=== PATIENT | male | born 1935 ===

== ENCOUNTER 2019-11-02 20:34 | Outpatient (REF) | payer MEDICARE, SELFPAY ==
[2019-11-02 20:59] LABS: Abs Immature Grans 0.02 10^3/uL (0.0-0.06); Absolute Basophil Count 0.05 10^3/uL (0.0-0.2); Absolute Lymphocyte Count 1.22 10^3/uL (1.2-3.4); Absolute Monocyte Count 0.81 10^3/uL (0.1-0.8); Absolute Neutrophil Count 4.16 10^3/uL (1.2-6.7); Basophils % 0.8; Eosinophils % 1.6; HCT 36.7 % (40.0-50.0); HGB 12.2 g/dL (13.5-17.5); Immature Grans % 0.3; Lymphocytes % 19.2; MCH 31.4 pg (27.0-33.0); MCHC 33.2 % (32.0-36.0); MCV 94.3 fL (80-95); MPV 12.1 fL (8.0-11.0); Monocytes % 12.7; Neutrophils % 65.4; Nucleated RBC 0 %; Platelet Count 111 10^3/uL (130-400); RBC 3.89 10^6/uL (4.36-5.78); RDW 12.5 % (11.8-14.1); RDW-SD 43.4 fL; WBC 6.36 10^3/uL (4.4-10.8)
[2019-11-02 21:01] LABS: INR 3.8 (0.9-1.1); Prothrombin Time 36.9 sec (9.3-11.0)
[2019-11-02 21:47] LABS: ALT 54 U/L (16-63); AST 46 U/L (15-37); Albumin 3.7 g/dL (3.4-5.0); Alkaline Phosphatase 305 U/L (46-116); Anion Gap 5.1 mmol/L (3-11); BUN 26 mg/dL (7-18); Bilirubin, Total 1.7 mg/dL (0.2-1.0); CO2 31.9 mmol/L (21.0-32.0); CREATININE 1.22 mg/dL (0.70-1.30); Calcium 9.5 mg/dL (8.5-10.1); Chloride 95 mmol/L (98-107); Estimated GFR 56.87 (mL/min/1.73m2); Glucose 122 mg/dL (74-106); Potassium 4.5 mmol/L (3.5-5.1); Sodium 132 mmol/L (136-145); Total Protein 6.9 g/dL (6.4-8.2)
[2019-11-02 22:11] LABS: Vitamin B12 878 pg/mL (193-986)
== END 2019-11-02 20:54 ==
LOC: NCHCN 20:34
PROVIDERS: PCP Nurse Practitioner Family; Visit Provider Nurse Practitioner Family
DX: I48.91 Unspecified atrial fibrillation (principal); I25.10 Atherosclerotic heart disease of native coronary artery without angina pectoris; R60.0 Localized edema
CPT/HCPCS: 80053; 82607; 84443; 85025; 85610

== ENCOUNTER 2019-11-15 14:48 | Outpatient (REF) | payer MEDICARE, SELFPAY ==
[2019-11-15 20:44] LABS: HCT 43.3 % (40.0-50.0); HGB 14.8 g/dL (13.5-17.5); MCH 31.5 pg (27.0-33.0); MCHC 34.2 % (32.0-36.0); MCV 92.1 fL (80-95); MPV 10.2 fL (8.0-11.0); Platelet Count 280 10^3/uL (130-400); RDW 12.3 % (11.8-14.1); RDW-SD 41.7 fL; WBC 9.01 10^3/uL (4.4-10.8)
[2019-11-15 21:39] LABS: ALT 42 U/L (16-63); AST 44 U/L (15-37); Albumin 4.6 g/dL (3.4-5.0); Alkaline Phosphatase 228 U/L (46-116); Anion Gap 9.6 mmol/L (3-11); BUN 29 mg/dL (7-18); Bilirubin, Total 1.6 mg/dL (0.2-1.0); CO2 28.4 mmol/L (21.0-32.0); CREATININE 1.21 mg/dL (0.70-1.30); Calcium 10.1 mg/dL (8.5-10.1); Chloride 93 mmol/L (98-107); Estimated GFR 57.41 (mL/min/1.73m2); Glucose 137 mg/dL (74-106); Potassium 4.6 mmol/L (3.5-5.1); Sodium 131 mmol/L (136-145); Total Protein 8.4 g/dL (6.4-8.2)
[2019-11-15 21:45] LABS: Vitamin D 25 Total 45.6 ng/ml (30-100)
[2019-11-16 09:02] LABS: Hemoglobin A1C 5.9 % (3.8-5.6)
== END 2019-11-15 15:08 ==
LOC: NCHCN 14:48
PROVIDERS: PCP Nurse Practitioner Family; Visit Provider Nurse Practitioner Family
DX: D64.9 Anemia, unspecified (principal); E55.9 Vitamin D deficiency, unspecified; I48.91 Unspecified atrial fibrillation; I35.0 Nonrheumatic aortic (valve) stenosis; R73.9 Hyperglycemia, unspecified
CPT/HCPCS: 80053; 82306; 85027; 83036

== ENCOUNTER 2019-11-23 16:39 | Outpatient (REF) | payer MEDICARE, SELFPAY ==
[2019-11-23 20:52] LABS: Abs Immature Grans 0.04 10^3/uL (0.0-0.06); Absolute Basophil Count 0.06 10^3/uL (0.0-0.2); Absolute Eosinophil Count 0.08 10^3/uL (0.0-0.7); Absolute Lymphocyte Count 1.89 10^3/uL (1.2-3.4); Basophils % 0.5; Eosinophils % 0.7; HGB 15.5 g/dL (13.5-17.5); Immature Grans % 0.3; Lymphocytes % 16.3; MCH 31.5 pg (27.0-33.0); MCHC 34.4 % (32.0-36.0); MCV 91.5 fL (80-95); MPV 10.2 fL (8.0-11.0); Monocytes % 10.4; Neutrophils % 71.8; Nucleated RBC 0 %; Platelet Count 255 10^3/uL (130-400); RBC 4.92 10^6/uL (4.36-5.78); RDW 12.7 % (11.8-14.1); RDW-SD 42.3 fL; WBC 11.58 10^3/uL (4.4-10.8)
[2019-11-23 21:03] LABS: Uric Acid 10.4 mg/dL (3.5-7.2)
[2019-11-23 21:07] LABS: Absolute Neutrophil Count 8.31 10^3/uL (1.2-6.7)
== END 2019-11-23 16:59 ==
LOC: NCHCN 16:39
PROVIDERS: PCP Nurse Practitioner Family; Visit Provider Nurse Practitioner Family
DX: I48.91 Unspecified atrial fibrillation (principal); Z79.01 Long term (current) use of anticoagulants; M25.562 Pain in left knee
CPT/HCPCS: 84550; 85025; 85610

== ENCOUNTER 2019-11-26 09:30 | Outpatient (REF) | payer MEDICARE, SELFPAY ==
[2019-11-26 21:44] LABS: Prothrombin Time 41.9 sec (9.3-11.0)
[2019-11-26 22:10] LABS: INR 4.3 (0.9-1.1)
== END 2019-11-26 09:50 ==
LOC: NCHCN 09:30
PROVIDERS: PCP Nurse Practitioner Family; Visit Provider Nurse Practitioner Family
DX: I48.91 Unspecified atrial fibrillation (principal); Z79.01 Long term (current) use of anticoagulants
CPT/HCPCS: 85610

== ENCOUNTER 2020-02-12 15:13 | Outpatient (REF) | payer MEDICARE, SELFPAY ==
[2020-02-12 21:17] LABS: HCT 44.1 % (40.0-50.0); HGB 14.7 g/dL (13.5-17.5); MCH 31.1 pg (27.0-33.0); MCHC 33.3 % (32.0-36.0); MCV 93.2 fL (80-95); MPV 10.4 fL (8.0-11.0); Platelet Count 248 10^3/uL (130-400); RBC 4.73 10^6/uL (4.36-5.78); RDW 13.7 % (11.8-14.1); RDW-SD 47.2 fL
[2020-02-12 21:51] LABS: ALT 39 U/L (16-63); AST 39 U/L (15-37); Albumin 4.3 g/dL (3.4-5.0); Alkaline Phosphatase 187 U/L (46-116); Anion Gap 7.8 mmol/L (3-11); BUN 14 mg/dL (7-18); Bilirubin, Total 1.4 mg/dL (0.2-1.0); CO2 28.2 mmol/L (21.0-32.0); CREATININE 1.06 mg/dL (0.70-1.30); Calcium 9.4 mg/dL (8.5-10.1); Chloride 98 mmol/L (98-107); Glucose 109 mg/dL (74-106); Potassium 4.3 mmol/L (3.5-5.1); Sodium 134 mmol/L (136-145); TSH 1.55 uIU/mL (0.36-3.74); Total Protein 8.2 g/dL (6.4-8.2)
== END 2020-02-12 15:33 ==
LOC: NCHCN 15:13
PROVIDERS: PCP Nurse Practitioner Family; Visit Provider Nurse Practitioner Family
DX: R73.03 Prediabetes (principal); I25.10 Atherosclerotic heart disease of native coronary artery without angina pectoris; I48.91 Unspecified atrial fibrillation; I87.2 Venous insufficiency (chronic) (peripheral); R74.01 Elevation of levels of liver transaminase levels
CPT/HCPCS: 80053; 85027; 84443

== ENCOUNTER 2020-03-17 20:53 | Outpatient (REF) | payer MEDICARE, SELFPAY ==
[2020-03-17 20:53] LABS: ALT 29 U/L (16-63); AST 28 U/L (15-37); Albumin 3.8 g/dL (3.4-5.0); Alkaline Phosphatase 147 U/L (46-116); Bilirubin, Direct 0.32 mg/dL (0.00-0.20); Bilirubin, Total 1.3 mg/dL (0.2-1.0); Total Protein 7.4 g/dL (6.4-8.2)
== END 2020-03-17 21:13 ==
LOC: NCHCN 20:53
PROVIDERS: PCP Nurse Practitioner Family; Visit Provider Nurse Practitioner Family
DX: E78.5 Hyperlipidemia, unspecified (principal)
CPT/HCPCS: 80076

== ENCOUNTER 2020-05-12 15:59 | Outpatient (REF) | payer MEDICARE, SELFPAY ==
[2020-05-12 21:07] LABS: ALT 31 U/L (16-63); AST 29 U/L (15-37); Alkaline Phosphatase 177 U/L (46-116); Anion Gap 10.2 mmol/L (3-11); BUN 14 mg/dL (7-18); Bilirubin, Total 1.3 mg/dL (0.2-1.0); CO2 27.8 mmol/L (21.0-32.0); CREATININE 1.1 mg/dL (0.70-1.30); Calcium 9.8 mg/dL (8.5-10.1); Chloride 101 mmol/L (98-107); Glucose 90 mg/dL (74-106); Potassium 4.3 mmol/L (3.5-5.1); Sodium 139 mmol/L (136-145); Total Protein 8.1 g/dL (6.4-8.2)
[2020-05-12 21:10] LABS: Hemoglobin A1C 6.3 % (<5.7)
== END 2020-05-12 16:00 | disposition home or self-care (01) ==
LOC: NCHCN 15:59
PROVIDERS: PCP Nurse Practitioner Family; Visit Provider Nurse Practitioner Family
DX: R73.03 Prediabetes (principal); L57.0 Actinic keratosis
CPT/HCPCS: 80053; 83036

== ENCOUNTER 2020-05-21 19:01 | Outpatient (REF) | payer MEDICARE, SELFPAY ==
[2020-05-21 22:25] LABS: Calculated LDL 102 mg/dL (<100); Cholesterol 182 mg/dL (<200); GGT 270 U/L (15-85); HDL Cholesterol 56 mg/dL (40-60); TSH (W/Ref FT4) 5.28 uIU/mL (0.36-3.74); Triglyceride 120 mg/dL (<150)
[2020-05-21 22:42] LABS: FREE T4 0.96 ng/dL (0.76-1.46)
== END 2020-05-21 19:02 | disposition home or self-care (01) ==
LOC: NCHCN 19:01
PROVIDERS: PCP Nurse Practitioner Family; Visit Provider Nurse Practitioner Family
DX: E78.5 Hyperlipidemia, unspecified (principal); R73.03 Prediabetes; R74.01 Elevation of levels of liver transaminase levels
CPT/HCPCS: 80061; 82977; 84439; 84443

== ENCOUNTER 2020-06-09 12:27 | Outpatient (REF) | payer MEDICARE, SELFPAY ==
[2020-06-09 20:40] LABS: Prothrombin Time 51.6 sec (9.3-11.0)
[2020-06-09 21:03] LABS: INR 5.4 (0.9-1.1)
== END 2020-06-09 12:28 | disposition home or self-care (01) ==
LOC: NCHCN 12:27
PROVIDERS: PCP Nurse Practitioner Family; Visit Provider Nurse Practitioner Family
DX: I25.10 Atherosclerotic heart disease of native coronary artery without angina pectoris (principal); Z79.01 Long term (current) use of anticoagulants
CPT/HCPCS: 85610